=== PATIENT | male | born 2000 | race Caucasian/White ===

== ENCOUNTER 2019-04-15 12:40 | Emergency (ER) | payer MEDICAID, OTHER ==
[~2019-04-15] VITALS: Ht 170.2 cm; Wt 65.0 kg
[2019-04-15 13:19] VITALS: BP 108/61
[2019-04-15] MEDS ORDERED: triamcinolone acetonide 40mg/ml inj IM ONE (15:10)
[2019-04-15] MEDS ORDERED: TETanus/Pertussis (Acell)/Diphther VAC/PF (Tdap-Adult) 0.5ml syringe IM ONE (15:10)
[2019-04-15] MEDS ORDERED: AMOX-419 PO (15:30)
--- NOTE | 2019-04-15 15:46 | NUR ---
refused tetanus, said he just got one two weeks ago, filled out [facility] paper, faxed to [facility], went over s/s of infection in the wound
== END 2019-04-15 15:48 | disposition home or self-care (01) ==
LOC: ER 12:41
DX: S61.236A Puncture wound without foreign body of right little finger without damage to nail, initial encounter (principal); L23.7 Allergic contact dermatitis due to plants, except food; Z79.899 Other long term (current) drug therapy; W54.0XXA Bitten by dog, initial encounter; Y93.89 Activity, other specified; Y92.89 Other specified places as the place of occurrence of the external cause; Y99.8 Other external cause status
CPT/HCPCS: 73130; 96372; 99283; J3301

== ENCOUNTER 2019-05-10 22:32 | Emergency (ER) | payer MEDICAID ==
[~2019-05-10] VITALS: Ht 170.2 cm; Wt 68.0 kg
[2019-05-10 22:37] VITALS: BP 124/73
[2019-05-10] MEDS ORDERED: ibuprofen tablet 400 MG TABLET PO ONE (23:35)
== END 2019-05-11 00:10 | disposition home or self-care (01) ==
LOC: ER 22:32
DX: S93.601A Unspecified sprain of right foot, initial encounter (principal); W01.0XXA Fall on same level from slipping, tripping and stumbling without subsequent striking against object, initial encounter; Y93.89 Activity, other specified; Y92.89 Other specified places as the place of occurrence of the external cause; Y99.8 Other external cause status
CPT/HCPCS: 73630; 99283

== ENCOUNTER 2019-05-21 16:07 | Emergency (ER) | payer MEDICAID ==
[~2019-05-21] VITALS: Ht 170.2 cm; Wt 65.5 kg
== END 2019-05-21 18:20 | disposition home or self-care (01) ==
LOC: ER 16:07
DX: S62.511A Displaced fracture of proximal phalanx of right thumb, initial encounter for closed fracture (principal); Y04.2XXA Assault by strike against or bumped into by another person, initial encounter; Y93.89 Activity, other specified; Y92.89 Other specified places as the place of occurrence of the external cause; Y99.8 Other external cause status
CPT/HCPCS: 29125; 73130; 99283

== ENCOUNTER 2019-06-08 20:54 | Emergency (ER) | payer MEDICAID ==
[~2019-06-08] VITALS: Ht 170.2 cm; Wt 63.9 kg
[2019-06-08 21:08] VITALS: BP 114/72
[2019-06-08] MEDS ORDERED: CEPH500C5 PO (22:10)
== END 2019-06-08 22:37 | disposition home or self-care (01) ==
LOC: ER 20:55
DX: S62.244D Nondisplaced fracture of shaft of first metacarpal bone, right hand, subsequent encounter for fracture with routine healing (principal); L03.114 Cellulitis of left upper limb; Z79.2 Long term (current) use of antibiotics; X58.XXXD Exposure to other specified factors, subsequent encounter
CPT/HCPCS: 29125; 99283

== ENCOUNTER 2019-08-03 16:12 | Emergency (ER) | payer MEDICAID ==
[~2019-08-03] VITALS: Ht 170.2 cm; Wt 64.0 kg
[~2019-08-03 16:12] MED LIST: CEPH500C5 PO
[2019-08-03 17:03] LABS: EOSINOPHILS # (AUTO) 0.2 X10'3 (0-0.9); LYMPHOCYTES % (AUTO) 31.6 % (21-51); NEUTROPHILS # (AUTO) 5.2 X10'3 (1.8-7.7)
[2019-08-03 17:08] LABS: BASOPHILS # (AUTO) 0.1 X10'3 (0-0.2); BASOPHILS % (AUTO) 0.7 % (0-1); EOSINOPHILS % (AUTO) 2.2 % (0-6); HEMATOCRIT 46.2 % (42.0-52.0); HEMOGLOBIN 16.3 g/dl (14.0-17.9); MEAN CORPUSCULAR HEMOGLOBIN 32.9 PG (27.0-31.0); MEAN CORPUSCULAR HGB CONC 35.2 g/dL (33.0-36.5); MEAN CORPUSCULAR VOLUME 93.6 FL (78-98); MEAN PLATELET VOLUME 8.4 FL (7.4-10.4); MONOCYTES # (AUTO) 0.9 X10'3 (0-0.9); MONOCYTES % (AUTO) 9.9 % (2-12); NEUTROPHILS % (AUTO) 55.6 % (42-75); PLATELET COUNT 313 X10'3 (140-440); RED BLOOD COUNT 4.94 X10'6 (4.70-6.10); RED CELL DISTRIBUTION WIDTH 11.7 % (11.5-14.5); WHITE BLOOD COUNT 9.4 X10'3 (4.5-11.0)
[2019-08-03 17:16] LABS: ALANINE AMINOTRANSFERASE 16 U/L (12-78); ALBUMIN 4.5 G/DL (3.4-5.0); ALBUMIN/GLOBULIN RATIO 1.3 (1.1-1.5); ALKALINE PHOSPHATASE 112 IU/L (46-116); ANION GAP 9 (8-16); ASPARTATE AMINO TRANSFERASE 21 U/L (10-37); BILIRUBIN,TOTAL 0.8 MG/DL (0.1-1.0); BLOOD UREA NITROGEN 12 MG/DL (7-18); BUN/CREATININE RATIO 11.3 (5.4-32.0); CALCIUM 9.6 MG/DL (8.5-10.1); CHLORIDE 104 MMOL/L (99-107); CREATININE 1.06 MG/DL (0.60-1.10); GLUCOSE 90 MG/DL (70-104); POTASSIUM 4.2 MMOL/L (3.5-5.1); SODIUM 141 MMOL/L (135-145); TOTAL CARBON DIOXIDE 28.5 MMOL/L (24-32); TOTAL PROTEIN 8.1 G/DL (6.4-8.2); eGFR 88 ML/MIN
[2019-08-03 18:55] LABS: CLARITY,URINE SLIGHTLY CLOUDY (Clear); COLOR,URINE YELLOW (Yellow); GLUCOSE, URINE NEGATIVE (Neg); KETONES,URINE TRACE mg/dl (Neg); LEUKOCYTE ESTERASE ,URINE NEGATIVE (Neg); NITRITES, URINE NEGATIVE (Neg); OCCULT BLOOD,URINE TRACE-INTACT (Neg); PH,URINE 6.5 (4.8-8.0); PROTEIN,URINE NEGATIVE (Neg); UROBILINOGEN,URINE 0.2 E.U/dL (0.2-1.0)
[2019-08-03 19:00] LABS: UA COLLECTION TYPE CLN CATCH MIDSTREAM
[2019-08-03 19:01] LABS: BACTERIA,URINE FEW /HPF (Neg); RBC,URINE 0-2 /HPF (0-2); SQUAMOUS EPITHELIAL CELL,UR FEW /LPF (FEW); WBC,URINE 0-4 /HPF (0-4)
[2019-08-03 19:02] LABS: AMORPHOUS PHOSPHATES 1+
[2019-08-03] MEDS ORDERED: ondansetron 4mg rapidly disintigrating tab PO ONE (19:05)
[2019-08-03 19:16] LABS: LIPASE 52 U/L (73-393)
[2019-08-03] MEDS ORDERED: ONDA4TAB12 PO (20:18)
[2019-08-03 20:41] VITALS: BP 120/51
== END 2019-08-03 20:42 | disposition home or self-care (01) ==
LOC: ER 16:13
DX: R10.13 Epigastric pain (principal); R11.2 Nausea with vomiting, unspecified; F17.210 Nicotine dependence, cigarettes, uncomplicated; F12.90 Cannabis use, unspecified, uncomplicated; Z79.2 Long term (current) use of antibiotics; Z79.899 Other long term (current) drug therapy
CPT/HCPCS: 36415; 80053; 81001; 83690; 85025; 85610; 99283

== ENCOUNTER 2019-08-10 23:12 | Emergency (ER) | payer MEDICAID ==
[~2019-08-10] VITALS: Ht 170.2 cm; Wt 68.2 kg
[~2019-08-10 23:12] MED LIST changes: +ONDA4TAB12 PO
--- NOTE | 2019-08-10 23:24 | NUR ---
TECH CLEANING UP BLOOD FROM PATIENT
--- NOTE | 2019-08-10 23:34 | NUR ---
DAVID AMEZQUITA [facility]: [phone]
--- NOTE | 2019-08-11 00:49 | NUR ---
PT RETURNED FROM CT OF HEAD. REPORTS PAIN CONTINUES TO HIS HEAD. PT IS SOMULANT AND REQUIRES LOUD VOICE AND LIGHT SHALING TO [place]WK[place]. ANSWERS QUESTIONS APPROPRIATELY. REPORTS GIRLFRIEND CINDA IS PRIMAY CONTACT AND SHE IS THE ONE TO CALL FOR DISCHARGE. CURRENT VSS.
[2019-08-11 00:50] VITALS: BP 109/48
--- NOTE | 2019-08-11 01:17 | NUR ---
pt sleeping, he is dc ready,transport wait while we try to get a hold of girlfriend
--- NOTE | 2019-08-11 01:36 | NUR ---
messages left for pts mother figueroa and pts girlfriend, lucy. [place] smith at bedside. Pt somulant, awakens briefly with light shaking. Awaiting transport
--- NOTE | 2019-08-11 04:57 | NUR ---
pt awake and requesting assistance to call his girlfriend. pt updated that he will need someone to come and pick him up. he reports he has no cell phone with him and does not know any numbers. he is now trying to call his girlfriend. given juice, crackers and jello.
--- NOTE | 2019-08-11 05:56 | NUR ---
pt standing at bedside independantly and with no ataxia. He is oriented and appropriate. Dr. Cage reports Pt ok to be taxied to a destination as long as nursing can speak with the individual who will receive him.
== END 2019-08-11 06:17 | disposition home or self-care (01) ==
LOC: ER 23:12
DX: S02.2XXA Fracture of nasal bones, initial encounter for closed fracture (principal); S02.5XXA Fracture of tooth (traumatic), initial encounter for closed fracture; S00.511A Abrasion of lip, initial encounter; F12.90 Cannabis use, unspecified, uncomplicated; Z79.2 Long term (current) use of antibiotics; Z79.899 Other long term (current) drug therapy; Y08.89XA Assault by other specified means, initial encounter; Y93.89 Activity, other specified; Y92.830 Public park as the place of occurrence of the external cause; Y99.8 Other external cause status
CPT/HCPCS: 70450; 70486; 71046; 99284

== ENCOUNTER 2019-11-26 19:44 | Emergency (ER) | payer MEDICAID, OTHER ==
[~2019-11-26] VITALS: Ht 170.2 cm; Wt 68.0 kg
[2019-11-26 19:50] VITALS: BP 100/64
[2019-11-26] MEDS ORDERED: triamcinolone acetonide 40mg/ml inj IM ONE (22:15)
== END 2019-11-26 22:30 | disposition home or self-care (01) ==
LOC: ER 19:44
DX: L23.7 Allergic contact dermatitis due to plants, except food (principal); Z79.899 Other long term (current) drug therapy
CPT/HCPCS: 96372; 99283; J3301

== ENCOUNTER 2020-05-29 10:21 | Emergency (ER) | payer MEDICAID, OTHER ==
[~2020-05-29] VITALS: Ht 170.2 cm; Wt 67.0 kg
[2020-05-29 10:25] VITALS: BP 149/96
== END 2020-05-29 13:01 | disposition left against medical advice (07) ==
LOC: ER 10:21
DX: R21 Rash and other nonspecific skin eruption (principal); Z53.21 Procedure and treatment not carried out due to patient leaving prior to being seen by health care provider; Z79.899 Other long term (current) drug therapy

== ENCOUNTER 2020-09-10 11:09 | Emergency (ER) | payer MEDICAID ==
[~2020-09-10] VITALS: Ht 170.2 cm; Wt 63.6 kg
[~2020-09-10 11:09] MED LIST changes: -CEPH500C5 PO
[2020-09-10 11:22] VITALS: BP 133/96
[2020-09-10] MEDS ORDERED: ibuprofen tablet 400 MG TABLET PO ONE (14:30)
[2020-09-10] MEDS ORDERED: ACET-2006 PO (14:51)
[2020-09-10] MEDS ORDERED: IBUP-1984 PO (14:51)
== END 2020-09-10 15:00 | disposition home or self-care (01) ==
LOC: ER 11:09
DX: S62.001A Unspecified fracture of navicular [scaphoid] bone of right wrist, initial encounter for closed fracture (principal); V00.131A Fall from skateboard, initial encounter; Y93.89 Activity, other specified; Y92.89 Other specified places as the place of occurrence of the external cause; Y99.8 Other external cause status
CPT/HCPCS: 29125; 73080; 73110; 73564; 99284